=== PATIENT | male | born 1950 | race Hispanic/Latino ===

== ENCOUNTER 2016-12-12 14:40 | Emergency (ER) | payer SELFPAY ==
--- NOTE | 2016-12-12 15:48 | Cat Scan Report ---
FINAL REPORT PROCEDURE: CT HEAD/BRAIN WO CON TECHNIQUE: Computerized tomography of the head was performed without contrast material. HISTORY: neuro deficits \T\lt; 6hrs or sx present upon awakening COMPARISON: No prior studies are available for comparison. FINDINGS: Visualized portions of the paranasal sinuses and mastoid air cells are clear. No calvarial fracture is seen. Old mild ischemic changes are seen in the right parietal lobe with mild enlargement of the occipital horn of the right lateral ventricle due to volume loss. Other mild chronic small vessel ischemic changes are seen in the periventricular white matter. No acute CVA is seen. No acute intracranial hemorrhage or mass effect is seen. IMPRESSION: Old ischemic changes are seen without evidence of acute abnormality.
[2016-12-12 16:33] LABS: INR 1.21 (0.87-1.13)
[2016-12-12 16:34] LABS: Eosinophils % (Auto) 0.7 % (0.0-4.3); Hematocrit 36.1 % (35.5-45.6); Hemoglobin 11.9 gm/dl (11.8-15.2); Mean Corpuscular HGB Conc 33 % (32-34); Mean Corpuscular Hemoglobin 32 pg (28-32); Mean Corpuscular Volume 95 fl (84-94); Partial Thromboplastin Time 30.7 Sec. (24.2-36.6); Platelet Count 309 K/mm3 (140-440); Red Blood Count 3.78 M/mm3 (3.65-5.03); Red Cell Distribution Width 14.3 % (13.2-15.2); White Blood Count 7.2 K/mm3 (4.5-11.0)
[2016-12-12 16:42] LABS: Anion Gap 18 mmol/L; BUN/Creatinine Ratio 15.45; Blood Urea Nitrogen 17 mg/dL (9-20); Calcium 8.5 mg/dL (8.4-10.2); Carbon Dioxide 22 mmol/L (22-30); Chloride 101.8 mmol/L (98-107); Glucose 96 mg/dL (75-100); Potassium 4.7 mmol/L (3.6-5.0); Sodium 137 mmol/L (137-145)
--- NOTE | 2016-12-12 19:02 | Emergency Department Report ---
ED Altered Mental Status HPI - General Chief Complaint: Altered Mental Status Stated Complaint: HBP/ AMS Time Seen by Provider: 12/12/16 18:04 Source: patient, family, RN notes reviewed Mode of arrival: Ambulatory Limitations: No Limitations - History of Present Illness Initial Comments: 66-year-old male presents to the emergency Department with family for evaluation of altered mental status. Per report, the patient became acutely confused this morning and was not responding to family members. Family states that he was trying to rip pieces of paper apartment trying to get into the glove compartment of the car he was in. Patient does not remember any of this. Patient states for the past 3 days he has been having mild headache, but he took some ibuprofen this morning that has resolved his headache. Patient has no complaints at this time. There are no other complaints. MD Complaint: confusion -: Sudden, This morning Severity: moderate Consistency of Symptoms: constant (now resolved) Associated Symptoms: headaches - Related Data Previous Rx's Medication Instructions Recorded Last Taken Type Carvedilol [Coreg] 6.25 mg PO BID #60 tablet 01/14/16 Unknown Rx Hydrochlorothiazide [HCTZ] 25 mg PO QDAY #30 tablet 01/14/16 Unknown Rx Lisinopril [Zestril TAB] 40 mg PO QDAY #30 tablet 01/14/16 Unknown Rx levETIRAcetam [Keppra TAB] 500 mg PO BID #60 tablet 12/12/16 Unknown Rx Allergies Allergy/AdvReac Type Severity Reaction Status Date / Time No Known Allergies Allergy Unverified 01/12/16 10:38 ED Review of Systems ROS: Stated complaint: HBP/ AMS Other details as noted in HPI Comment: All other systems reviewed and negative Neurological: headache, confusion ED Past Medical Hx - Past Medical History Previous Medical History?: Yes Hx Hypertension: Yes Hx Congestive Heart Failure: Yes Hx Arthritis: Yes (rt hip) Hx Seizures: Yes (single seizure in the past, not on medication) Additional medical history: CHF - Surgical History Past Surgical History?: No - Family History Family history: no significant - Social History Smoking Status: Former Smoker Substance Use Type: Alcohol, Prescribed - Medications Home Medications: Home Medications Medication Instructions Recorded Confirmed Last Taken Type Carvedilol [Coreg] 6.25 mg PO BID #60 tablet 01/14/16 Unknown Rx Hydrochlorothiazide [HCTZ] 25 mg PO QDAY #30 tablet 01/14/16 Unknown Rx Lisinopril [Zestril TAB] 40 mg PO QDAY #30 tablet 01/14/16 Unknown Rx levETIRAcetam [Keppra TAB] 500 mg PO BID #60 tablet 12/12/16 Unknown Rx ED Physical Exam - General Limitations: No Limitations General appearance: alert, in no apparent distress - Head Head exam: Present: atraumatic, normocephalic - Eye Eye exam: Present: normal appearance, PERRL, EOMI - ENT ENT exam: Present: normal exam, normal orophraynx, mucous membranes moist - Neck Neck exam: Present: normal inspection, full ROM. Absent: tenderness - Respiratory Respiratory exam: Present: normal lung sounds bilaterally. Absent: respiratory distress - Cardiovascular Cardiovascular Exam: Present: regular rate, normal rhythm, normal heart sounds - GI/Abdominal GI/Abdominal exam: Present: soft, normal bowel sounds. Absent: distended, tenderness - Extremities Exam Extremities exam: Present: normal inspection, full ROM. Absent: tenderness - Back Exam Back exam: Present: normal inspection, full ROM. Absent: tenderness - Neurological Exam Neurological exam: Present: alert, oriented X3. Absent: motor sensory deficit - Skin Skin exam: Present: warm, dry, intact ED Course Vital Signs 12/12/16 12/12/16 12/12/16 15:09 17:57 18:45 Temperature 98 F Pulse Rate 64 58 L 62 Respiratory 20 16 12 Rate Blood Pressure 162/105 Blood Pressure 189/104 163/107 [Right] O2 Sat by Pulse 100 100 100 Oximetry 12/12/16 12/12/16 12/12/16 18:47 18:55 19:01 Temperature Pulse Rate 80 71 Respiratory 16 21 15 Rate Blood Pressure Blood Pressure [Right] O2 Sat by Pulse 100 83 L 100 Oximetry 12/12/16 12/12/16 12/12/16 19:31 19:40 20:00 Temperature Pulse Rate 59 L 86 60 Respiratory 15 16 14 Rate Blood Pressure 176/103 Blood Pressure 187/118 [Right] O2 Sat by Pulse 100 97 100 Oximetry 12/12/16 12/12/16 20:30 21:00 Temperature Pulse Rate 73 78 Respiratory 15 18 Rate Blood Pressure 161/107 167/104 Blood Pressure [Right] O2 Sat by Pulse 100 100 Oximetry - Lab Data Result diagrams: 12/12/16 15:54 12/12/16 15:54 Lab Results 12/12/16 12/12/16 12/12/16 Range/Units 15:05 15:54 15:54 WBC 7.2 (4.5-11.0) K/mm3 RBC 3.78 (3.65-5.03) M/mm3 Hgb 11.9 (11.8-15.2) gm/dl Hct 36.1 (35.5-45.6) % MCV 95 H (84-94) fl MCH 32 (28-32) pg MCHC 33 (32-34) % RDW 14.3 (13.2-15.2) % Plt Count 309 (140-440) K/mm3 Lymph % (Auto) 19.7 (13.4-35.0) % [place] % (Auto) 4.7 (0.0-7.3) % Eos % (Auto) 0.7 (0.0-4.3) % Baso % (Auto) 1.0 (0.0-1.8) % Lymph # 1.4 (1.2-5.4) K/mm3 [place] # 0.3 (0.0-0.8) K/mm3 Eos # 0.1 (0.0-0.4) K/mm3 Baso # 0.1 (0.0-0.1) K/mm3 Seg Neutrophils % 73.9 H (40.0-70.0) % Seg Neutrophils # 5.3 (1.8-7.7) K/mm3 PT 15.2 H (12.2-14.9) Sec. INR 1.21 H (0.87-1.13) APTT 30.7 (24.2-36.6) Sec. Thrombin Time (15.1-19.6) Sec. Sodium (137-145) mmol/L Potassium (3.6-5.0) mmol/L Chloride (98-107) mmol/L Carbon Dioxide (22-30) mmol/L Anion Gap mmol/L BUN (9-20) mg/dL Creatinine (0.8-1.5) mg/dL Estimated GFR ml/min BUN/Creatinine Ratio % Glucose (75-100) mg/dL POC Glucose 101 (70-105) Calcium (8.4-10.2) mg/dL Troponin T (0.00-0.029) ng/mL Urine Color (Yellow) Urine Turbidity (Clear) Urine pH (5.0-7.0) Ur Specific [place] (1.003-1.030) Urine Protein (Negative) mg/dL Urine Glucose (UA) (Negative) mg/dL Urine Ketones (Negative) mg/dL Urine Blood (Negative) Urine Nitrite (Negative) Urine Bilirubin (Negative) Urine Urobilinogen (<2.0) mg/dL Ur Leukocyte Esterase (Negative) Urine WBC (Auto) (0.0-6.0) /HPF Urine RBC (Auto) (0.0-6.0) /HPF U Epithel Cells (Auto) (0-13.0) /HPF Urine Mucus /HPF 12/12/16 12/12/16 12/12/16 Range/Units 15:54 15:54 19:51 WBC (4.5-11.0) K/mm3 RBC (3.65-5.03) M/mm3 Hgb (11.8-15.2) gm/dl Hct (35.5-45.6) % MCV (84-94) fl MCH (28-32) pg MCHC (32-34) % RDW (13.2-15.2) % Plt Count (140-440) K/mm3 Lymph % (Auto) (13.4-35.0) % [place] % (Auto) (0.0-7.3) % Eos % (Auto) (0.0-4.3) % Baso % (Auto) (0.0-1.8) % Lymph # (1.2-5.4) K/mm3 [place] # (0.0-0.8) K/mm3 Eos # (0.0-0.4) K/mm3 Baso # (0.0-0.1) K/mm3 Seg Neutrophils % (40.0-70.0) % Seg Neutrophils # (1.8-7.7) K/mm3 PT (12.2-14.9) Sec. INR (0.87-1.13) APTT (24.2-36.6) Sec. Thrombin Time 17.3 (15.1-19.6) Sec. Sodium 137 (137-145) mmol/L Potassium 4.7 (3.6-5.0) mmol/L Chloride 101.8 (98-107) mmol/L Carbon Dioxide 22 (22-30) mmol/L Anion Gap 18 mmol/L BUN 17 (9-20) mg/dL Creatinine 1.1 (0.8-1.5) mg/dL Estimated GFR > 60 ml/min BUN/Creatinine Ratio 15.45 % Glucose 96 (75-100) mg/dL POC Glucose (70-105) Calcium 8.5 (8.4-10.2) mg/dL Troponin T < 0.010 (0.00-0.029) ng/mL Urine Color Yellow (Yellow) Urine Turbidity Clear (Clear) Urine pH 6.0 (5.0-7.0) Ur Specific [place] 1.019 (1.003-1.030) Urine Protein 30 mg/dl (Negative) mg/dL Urine Glucose (UA) Neg (Negative) mg/dL Urine Ketones Neg (Negative) mg/dL Urine Blood Neg (Negative) Urine Nitrite Neg (Negative) Urine Bilirubin Neg (Negative) Urine Urobilinogen < 2.0 (<2.0) mg/dL Ur Leukocyte Esterase Neg (Negative) Urine WBC (Auto) 1.0 (0.0-6.0) /HPF Urine RBC (Auto) 2.0 (0.0-6.0) /HPF U Epithel Cells (Auto) < 1.0 (0-13.0) /HPF Urine Mucus Few /HPF - EKG Data -: EKG Interpreted by Ia EKG shows normal: sinus rhythm, axis, intervals, QRS complexes, ST-T waves Rate: normal When compared to previous EKG there are: no significant change Interpretation: normal EKG - Radiology Data Radiology results: report reviewed, image reviewed Head CT shows old ischemic changes without acute abnormality. - Medical Decision Making Lab and imaging results reviewed and discussed with the patient and family. Patient has remained asymptomatic in the emergency department. It is likely that the patient's symptoms are related to a seizure. Review of the patient's chart shows that the patient was prescribed 500 mg of Keppra upon discharge from the hospital last January. He states he is not currently taking any medication for seizures, and has not seen a neurologist. Patient will be discharged home at this time with a prescription for Keppra and referral for neurology. - Differential Diagnosis migraine, ICH, occult infection, seizure Critical care attestation.: If time is entered above; I have spent that time in minutes in the direct care of this critically ill patient, excluding procedure time. ED Disposition Clinical Impression: Seizure Disposition: DISCHARGED TO HOME OR SELFCARE Is pt being admited?: No Condition: Stable Instructions: Non-epileptic Seizures (ED) Prescriptions: levETIRAcetam [Keppra TAB] 500 mg PO BID #60 tablet Referrals: SABAS FITZPATRICK MD [Staff Physician] - 3-5 Days Time of Disposition: 21:23
[2016-12-12 20:29] LABS: Bilirubin,Urine NEG (Negative); Blood,Urine NEG (Negative); Ketones,Urine NEG (Negative); Leukocyte Esterase,Urine NEG (Negative); Mucus,Urine FEW /HPF; Nitrite,Urine NEG (Negative); Urobilinogen,Urine < 2.0 mg/dL (<2.0)
[2016-12-12 21:06] VITALS: BP 167/104
== END 2016-12-12 21:54 | disposition home or self-care (01) ==
LOC: ED 14:40
DX: R56.9 Unspecified convulsions (principal); I10 Essential (primary) hypertension; I50.9 Heart failure, unspecified; M19.90 Unspecified osteoarthritis, unspecified site; Z87.891 Personal history of nicotine dependence
CPT/HCPCS: 36415; 70450; 80048; 81001; 82962; 84484; 85025; 85610; 85670; 85730; 93005; 93010